=== PATIENT | female | born 1955 | race Caucasian/White ===

== ENCOUNTER → 2017-05-27 | Outpatient (CLI) | payer MEDICARE | END | disposition home or self-care (01) | LOC: KCIC MAMMO 11:51 | DX: Z12.31 Encounter for screening mammogram for malignant neoplasm of breast (principal); E11.9 Type 2 diabetes mellitus without complications | CPT/HCPCS: 77063; 77067 ==

== ENCOUNTER 2019-03-06 16:43 | Emergency (ER) | payer MEDICARE ==
[~2019-03-06] VITALS: Ht 157.5 cm; Wt 70.3 kg
[~2019-03-06 16:43] MED LIST: MAGN400C PO; NAPR-677 PO; OMEG500C PO; OXYC1TAB15 PO
[2019-03-06 16:59] VITALS: BP 176/82
[2019-03-06] MEDS: KETOROLAC 60 MG/2 ML VIAL. IM ONE (17:19)
--- NOTE | 2019-03-06 17:19 | PHYS DOC ---
Adult General Chief Complaint Chief Complaint: UPPER EXTREMITY INJURY [facility] HPI Patient is a 63 year old female who presents with [left shoulder pain since yesterday. Patient reports yesterday, she was hoping somebody move when the had been to fall on her, reports she has had some increasing discomfort to her left shoulder since that time. States last night she was able to move it, however when she got up this morning she was unable to move it and is unable to hold it without any discomfort. Has taken some Tylenol approximately 4 hours ago. Denies any recent fever. Does report she has a history of " bad rotator cuffs" ] Review of Systems Review of Systems Constitutional: Denies fever or chills [] Respiratory: Denies cough or shortness of breath [] Cardiovascular: No additional information not addressed in HPI [] Musculoskeletal: Denies back pain or joint pain does complain of pain to left shoulder, left humeral head[] Integument: Denies rash or skin lesions [] Neurologic: Denies headache, focal weakness or sensory changes [] Endocrine: Denies polyuria or polydipsia [] All other systems were reviewed and found to be within normal limits, except as documented in this note. Current Medications Current Medications Current Medications Medications (Trade) Dose Ordered Sig/Tesfaye Start Time Stop Time Status Last Admin Dose Admin Ketorolac Tromethamine (Toradol Im) 30 mg 1X ONCE 03/06/19 17:15 03/06/19 17:16 DC 03/06/19 17:19 30 MG Allergies Allergies Allergies Coded Allergies Type Severity Reaction Last Updated Verified No Known Drug Allergies 06/04/15 No Physical Exam Physical Exam Constitutional: Well developed, well nourished, no acute distress, non-toxic appearance. [] Neck: Normal range of motion, no tenderness, supple, no stridor. [] Cardiovascular:Heart rate regular rhythm, no murmur [] Lungs & Thorax: Bilateral breath sounds clear to auscultation [] Skin: Warm, dry, no erythema, no rash. [] Back: No tenderness, no CVA tenderness. [] Extremities: No tenderness, no cyanosis, no clubbing, ROM intact, no edema. Patient decreased range of motion to left shoulder, able to recent anteriorly and laterally, however with increased discomfort and decreased range. Pulses noted intact, sensation noted intact. Full range of motion to elbow, wrist.[] Neurologic: Alert and oriented X 3, normal motor function, normal sensory function, no focal deficits noted. [] Psychologic: Affect normal, judgement normal, mood normal. [] Current Patient Data Vital Signs Vital Signs Date Time Temp Pulse Resp B/P (MAP) Pulse Ox O2 Delivery O2 Flow Rate FiO2 03/06/19 16:59 97.8 109 20 176/82 (113) 96 Room Air 97.8 EKG EKG [] Radiology/Procedures Radiology/Procedures FINDINGS: There is no evidence for acute fracture or dislocation. AC joint is congruent. AC joint and glenoid rim osteophytes are seen. Humeral head is not high riding. IMPRESSION: 1. No acute fracture or dislocation. 2. Minimal a.c. and glenohumeral joint osteoarthritis. Electronically signed by: Alfie Young MD (03/06/2019 5:38 PM) [id number] [] Course & Med Decision Making Course & Med Decision Making Pertinent Labs and Imaging studies reviewed. (See chart for details) []Discussed findings with patient without noted fracture or dislocation. Discussed findings of arthritis, believe it to be extremely shoulder. We'll put patient in a shoulder immobilizer, continue use of NSAIDs for discomfort. Patient to follow up with primary care as needed Dragon Disclaimer Dragon Disclaimer This electronic medical record was generated, in whole or in part, using a voice recognition dictation system. Departure Departure Impression: Primary Impression: Contusion of left shoulder Disposition: 01 HOME, SELF-CARE Condition: STABLE Referrals: NYDIA MEADOWS MD (PCP) Patient Instructions: Shoulder Pain Additional Instructions: As we discussed, continue to take Tylenol or ibuprofen for discomfort. Do not take any ibuprofen tonight until approximately 1 or 2 AM. He may take 400-600 mg of ibuprofen every 8 hours for the pain. Continue to wear the sling to help take the pressure off the arm. Follow-up with your primary care provider if you're not feeling better in a few days. 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
--- NOTE | 2019-03-06 17:40 | RAD ---
EXAM: 3 Views Left Shoulder DATE: 03/06/2019 5:12 PM INDICATION: Left shoulder pain, limited range of motion. COMPARISON: No Prior FINDINGS: There is no evidence for acute fracture or dislocation. AC joint is congruent. AC joint and glenoid rim osteophytes are seen. Humeral head is not high riding. IMPRESSION: 1. No acute fracture or dislocation. 2. Minimal a.c. and glenohumeral joint osteoarthritis. Electronically signed by: Alfie Young MD (03/06/2019 5:38 PM) [facility]
== END 2019-03-06 18:06 | disposition home or self-care (01) ==
LOC: ER 16:43
DX: S40.012A Contusion of left shoulder, initial encounter (principal); M19.012 Primary osteoarthritis, left shoulder; W03.XXXA Other fall on same level due to collision with another person, initial encounter; Y93.89 Activity, other specified; Y92.89 Other specified places as the place of occurrence of the external cause; Y99.8 Other external cause status
CPT/HCPCS: 73030; 96372; 99284; J1885

== ENCOUNTER → 2019-11-02 | Outpatient (CLI) | payer BC ==
--- NOTE | 2019-11-02 17:46 | KCIC ---
BILATERAL SCREENING MAMMOGRAM, 3-D History: Routine screening. Comparison: Bilateral mammogram May 27, 2017. Technique: MLO and CC digital tomosynthesis (3D) images obtained. Radiologist reviewed these images on dedicated workstation. Findings: Breast Tissue Density B : There are scattered areas of fibroglandular density. Glandular nodularity of the anterior retroareolar left breast is stable. Benign axillary lymph nodes are stable. There are no dominant masses, suspicious microcalcifications, or architectural distortion. IMPRESSION: No mammographic evidence of malignancy. Recommend routine screening. BI-RADS category 2: Benign findings. The images were reviewed with computer-aided detection. Patient information is entered into reminder system with a target due date for the next screening mammogram. Mammography is the most sensitive method for finding small breast cancers, but it does not detect them all and is not a substitute for careful clinical examination. A negative mammogram does not negate a clinically suspicious finding and should not result in delay in biopsying a clinically suspicious abnormality. "Our facility is accredited by the [employer] Mammography Program." Electronically signed by: Steven Almeida MD (11/02/2019 5:43 PM) [id number]
== END | disposition home or self-care (01) ==
LOC: KCIC MAMMO 09:46
PROVIDERS: ATTEND Family Medicine
DX: Z12.31 Encounter for screening mammogram for malignant neoplasm of breast (principal); N64.89 Other specified disorders of breast
CPT/HCPCS: 77063; 77067